=== PATIENT | female | born 1975 | race Caucasian/White ===

== ENCOUNTER 2022-06-28 20:45 | Emergency (ER) | payer BC ==
[~2022-06-28] VITALS: Ht 165.1 cm; Wt 99.8 kg
--- NOTE | 2022-06-29 01:24 | NUR ---
Placed patient in hallway due to no beds available in the ER.
--- NOTE | 2022-06-29 01:26 | NUR ---
Dr Lorenzo into eval patient in the [facility].
[2022-06-29] MEDS ORDERED: ALBU8.5H8 IH (01:36)
[2022-06-29] MEDS ORDERED: PRED20TA PO (01:36)
[2022-06-29] MEDS ORDERED: predniSONE 50 MG TABLET ONE (01:38)
[2022-06-29] MEDS ORDERED: predniSONE 10 MG TABLET ONE (01:39)
[2022-06-29] MEDS ORDERED: predniSONE 20 MG TABLET PO ONE (01:45)
[2022-06-29 02:02] VITALS: BP 140/89
--- NOTE | 2022-06-29 02:02 | NUR ---
Patient discharged to home in stable condition. Written and verbal after care instructions given. Patient verbalizes understanding of instructions. Stressed follow up or return to ER for worsening s/s.
== END 2022-06-29 02:02 | disposition home or self-care (01) ==
LOC: ER 20:45
DX: J20.9 Acute bronchitis, unspecified (principal)
CPT/HCPCS: 99283; J7512 ×2; A4663